=== PATIENT | female | born 1945 | race African-American/Black ===

== ENCOUNTER 2016-10-21 16:27 | Emergency (ER) | payer BC, OTHER ==
[~2016-10-21] VITALS: Ht 167.6 cm; Wt 72.6 kg
[2016-10-21 16:44] VITALS: BP 137/92
== END 2016-10-21 19:45 | disposition home or self-care (01) ==
LOC: ER 16:27
DX: R51 Headache (principal); V49.9XXA Car occupant (driver) (passenger) injured in unspecified traffic accident, initial encounter; Y93.89 Activity, other specified; Y99.8 Other external cause status; Y92.488 Other paved roadways as the place of occurrence of the external cause